=== PATIENT | female | born 1990 | race Caucasian/White ===

== ENCOUNTER 2022-07-18 21:21 | Outpatient (CLI) | payer BC, OTHER | END 2022-07-18 23:59 | disposition critical access hospital (66) | LOC: EMS 21:21 | DX: M54.50 Low back pain, unspecified (principal); Y04.8XXA Assault by other bodily force, initial encounter; Y92.008 Other place in unspecified non-institutional (private) residence as the place of occurrence of the external cause | CPT/HCPCS: A0425; A0429 ==

== ENCOUNTER 2022-07-18 21:39 | Emergency (ER) | payer BC ==
[2022-07-18] MEDS ORDERED: MELOXICAM 7.5 MG TABLET PO STA (22:20)
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
[2022-07-18 23:25] VITALS: BP 136/84
--- NOTE | 2022-07-18 23:44 | XRAY Report ---
PROCEDURE: Lumbar Spine 2 View INDICATIONS: fall, back pain TECHNIQUE: 2 views of the lumbar spine were acquired. COMPARISON: None. FINDINGS: Bones: 5 [id number] vertebrae are present. No evidence of fracture or subluxation. No vertebral body compression fractures. No suspicious bony lesions. Soft tissues: Overlying bowel gas pattern is normal. No suspicious soft tissue calcifications. IMPRESSION: 1. No evidence of fracture or subluxation. Reviewed by: Varun Durand MD on 07/18/2022 11:42 PM PDT Approved by: Varun Durand MD on 07/18/2022 11:42 PM PDT Station ID: [id number]
== END 2022-07-18 23:32 | disposition home or self-care (01) ==
LOC: ED 21:39
DX: M54.50 Low back pain, unspecified (principal)
CPT/HCPCS: 72100; 99283; 99284; A9270

== ENCOUNTER 2022-10-07 06:39 | Emergency (ER) | payer BC ==
[2022-10-07] MEDS ORDERED: ONDANSETRON 4 MG/2 ML VIAL IVP STA (07:36)
[2022-10-07] MEDS ORDERED: SODIUM CHLORIDE 0.9% 2,000 ML IV STA (07:36)
[2022-10-07] MEDS ORDERED: PANTOPRAZOLE 40 MG VIAL IVP STA (07:36)
--- NOTE | 2022-10-07 07:48 | ED Physician Documentation ---
PD HPI ABD PAIN - Stated complaint Stated Complaint: V/ABD PX - Chief complaint Chief Complaint: Abd Pain - History obtained from History obtained from: Patient - History of Present Illness Timing - onset: Today Pain level max: 6 Pain level now: 5 Quality: Aching, Pain Location: Epigastric Associated symptoms: Nausea, Vomiting. No: Fever, Hematemesis, Diarrhea, Constipation, Melena, Hematochezia, Dysuria - Additional information Additional information: Patient is a 32-year-old female who presents to the emergency department stating that she was drinking alcohol yesterday states she states that she had been sober for quite a while and drank an excessive amount. She has had vomiting this morning. No fevers. No chills. Denies any possibility of . Has epigastric abdominal pain. No blood in the emesis. No blood in the stool. She has not been taking her home medications recently. Review of Systems Constitutional: denies: Fever, Chills Nose: denies: Rhinorrhea / runny nose, Congestion Respiratory: denies: Cough GI: reports: Nausea, Vomiting. denies: Diarrhea : denies: Now EGA Skin: denies: Rash Musculoskeletal: denies: Neck pain, Back pain Neurologic: denies: Headache PD PAST MEDICAL HISTORY - Past Medical History Past Medical History: Yes GI: Pancreatitis Psych: Bipolar disorder - Present Medications Home Medications: Ambulatory Orders Medication Instructions Recorded Confirmed Acamprosate Calcium 666 mg PO DAILY 07/18/22 07/18/22 EPINEPHrine [Epinephrine] 0.3 mg IJ PRN PRN 07/18/22 07/18/22 [place] Carbonate 600 mg PO HS 07/18/22 07/18/22 Ondansetron HCl 4 mg PO Q4H PRN 07/18/22 07/18/22 hydrOXYzine HCL [Hydroxyzine HCl] 25 mg PO DAILY 07/18/22 07/18/22 lamoTRIgine [LaMICtal] 50 mg PO DAILY 07/18/22 07/18/22 methocarbamoL [Methocarbamol] 75 mg PO DAILY 07/18/22 07/18/22 Ondansetron Odt [Zofran] 4 mg TL Q6H PRN #10 tablet 10/07/22 - Allergies Allergies/Adverse Reactions: Allergies Allergy/AdvReac Type Severity Reaction Status Date / Time quetiapine [From Seroquel] AdvReac Unknown Verified 10/07/22 06:56 - Living Situation Living Situation: reports: With family Living Arrangement: reports: At home - Social History Does the pt drink ETOH?: Yes Does the pt have substance abuse?: No - Family History Family history: reports: Non contributory PD ED PE NORMAL - Vitals Vital signs reviewed: Yes - General General: Alert and oriented X 3, No acute distress - HEENT HEENT: PERRL, Moist mucous membranes - Neck Neck: Supple, no meningeal sign - Cardiac Cardiac: RRR, Strong equal pulses - Respiratory Respiratory: No respiratory distress, Clear bilaterally - Abdomen Abdomen: Soft, Non distended, Other (Tender to palpation epigastric without peritoneal signs) - Back Back: No CVA TTP, No spinal TTP - Derm Derm: Warm and dry - Extremities Extremities: No edema, No calf tenderness / cord - Neuro Neuro: Alert and oriented X 3 - Psych Psych: Normal mood, Normal affect Results - Vitals Vitals: Vital Signs - 24 hr 10/07/22 10/07/22 10/07/22 06:48 08:02 09:12 Temperature 37.3 C Heart Rate 105 H 74 99 Respiratory 19 18 18 Rate Blood Pressure 121/81 H 113/75 106/68 O2 Saturation 98 99 100 Oxygen O2 Source Room air - Labs Labs: Laboratory Tests 10/07/22 10/07/22 10/07/22 07:38 08:03 08:03 WBC 5.4 RBC 4.89 Hgb 15.2 Hct 43.7 MCV 89.4 MCH 31.1 H MCHC 34.8 RDW 12.1 Plt Count 396 MPV 8.9 Neut # (Auto) 3.9 Lymph # (Auto) 1.2 L [place] # (Auto) 0.2 Eos # (Auto) 0.2 Baso # (Auto) 0.0 Absolute Nucleated RBC 0.00 Nucleated RBC % 0.0 Sodium 140 Potassium 3.9 Chloride 105 Carbon Dioxide 24 Anion Gap 11.0 BUN 13 Creatinine 0.8 Estimated GFR (MDRD) 84 L Glucose 133 H Calcium 8.6 Total Bilirubin 0.4 AST 18 ALT 21 Alkaline Phosphatase 49 Total Protein 8.6 H Albumin 4.9 Globulin 3.7 Albumin/Globulin Ratio 1.3 Lipase 31 Urine Color YELLOW Urine Clarity HAZY Urine pH 8.0 H Ur Specific [place] 1.015 Urine Protein TRACE Urine Glucose (UA) NEGATIVE Urine Ketones NEGATIVE Urine Occult Blood SMALL H Urine Nitrite NEGATIVE Urine Bilirubin NEGATIVE Urine Urobilinogen 0.2 (NORMAL) Ur Leukocyte Esterase NEGATIVE Urine RBC 0-5 Urine WBC 0-3 Ur Squamous Epith Cells MOD Squamous H Urine Bacteria Moderate H Ur Microscopic Review INDICATED Urine Culture Comments NOT INDICATED Urine HCG, Qual NEGATIVE PD Medical Decision Making - ED course Complexity details: reviewed results, re-evaluated patient, considered differential, d/w patient ED course: 32-year-old female with nausea and vomiting after drinking alcohol yesterday. No significant findings on CBC, ER abdominal panel or urinalysis. Given IV fluids, IV Protonix and IV Zofran. Patient feels much better. Eating and drinking without difficulty. We will have her follow-up with her doctor for further care. Patient does not want to speak to social work about detox or rehab. Patient counseled regarding signs and symptoms for which I believe and urgent re-evaluation would be necessary. Patient with good understanding of and agreement to plan and is comfortable going home at this time This document was made in part using voice recognition software. While efforts are made to proofread this document, sound alike and grammatical errors may occur. Departure - Departure Disposition: 01 Home, Self Care Clinical Impression: Vomiting Qualifiers: Vomiting type: unspecified Nausea presence: with nausea Qualified Code(s): R11.2 - Nausea with vomiting, unspecified Condition: Good Instructions: ED Nausea Vomiting Follow-Up: your,doctor in 1 week [Other] Prescriptions: Ondansetron Odt [Zofran] 4 mg TL Q6H PRN #10 tablet PRN Reason: Nausea / Vomiting Comments: Your prescription was [facility] in [place]. Please follow-up with your doctor for further care. Please return if you worsen. Discharge Date/Time: 10/07/22 09:13
[2022-10-07 07:59] LABS: BILIRUBIN,URINE NEGATIVE (NEGATIVE); GLUCOSE, URINE (UA) NEGATIVE (NEGATIVE); KETONES,URINE (UA) NEGATIVE (NEGATIVE); LEUKOCYTE ESTERASE, URINE NEGATIVE (NEGATIVE); NITRITE,URINE NEGATIVE (NEGATIVE); OCCULT BLOOD,URINE SMALL (NEGATIVE); PROTEIN,URINE TRACE mg/dL (NEGATIVE); UROBILINOGEN,URINE 0.2 (NORMAL) E.U./dL (NORMAL)
[2022-10-07 08:00] LABS: CLARITY,URINE HAZY (CLEAR)
[2022-10-07 08:06] LABS: BACTERIA,URINE Moderate /HPF (None Seen); HCG UR QUAL NEGATIVE; RBC,URINE 0-5 /HPF (0-5); SQUAMOUS EPITHELIAL CELL,UR MOD Squamous (<= Few); WBC,URINE 0-3 /HPF (0-5)
[2022-10-07 08:09] LABS: BASOPHILS % (AUTO) 0.4 %; EOSINOPHILS # (AUTO) 0.2 10^3/uL (0.0-0.7); EOSINOPHILS % (AUTO) 2.9 %; HCT - HEMATOCRIT 43.7 % (37.0-47.0); HGB - HEMOGLOBIN 15.2 g/dL (12.0-16.0); LYMPHOCYTES # (AUTO) 1.2 10^3/uL (1.5-3.5); LYMPHOCYTES % (AUTO) 22.5 %; MEAN CORPUSCULAR HEMOGLOBIN 31.1 pg (27.0-31.0); MEAN CORPUSCULAR HGB CONC 34.8 g/dL (32.0-36.0); MEAN CORPUSCULAR VOLUME 89.4 fL (81.0-99.0); MEAN PLATELET VOLUME 8.9 fL (7.9-10.8); MONOCYTES # (AUTO) 0.2 10^3/uL (0.0-1.0); MONOCYTES % (AUTO) 2.8 %; NEUTROPHILS # (AUTO) 3.9 10^3/uL (1.5-6.6); PLT - PLATELET COUNT 396 10^3/uL (130-450); RED BLOOD COUNT 4.89 10^6/uL (4.20-5.40); RED CELL DISTRIBUTION WIDTH 12.1 % (12.0-15.0); WHITE BLOOD COUNT 5.4 x10^3/uL (4.8-10.8)
[2022-10-07 08:21] LABS: ALBUMIN 4.9 g/dL (3.2-5.5); ALBUMIN/GLOBULIN RATIO 1.3 (1.0-2.2); BILIRUBIN,TOTAL 0.4 mg/dL (0.2-1.0); CALCIUM 8.6 mg/dL (8.5-10.3); CREATININE 0.8 mg/dL (0.4-1.0); POTASSIUM 3.9 mmol/L (3.5-5.0); TOTAL PROTEIN 8.6 g/dL (6.7-8.2)
[2022-10-07 09:18] VITALS: BP 106/68
== END 2022-10-07 09:13 | disposition home or self-care (01) ==
LOC: ED 06:39
DX: R11.2 Nausea with vomiting, unspecified (principal)
CPT/HCPCS: 36415; 80053; 81001; 81003; 81025; 83690; 85025; 87086; 96374; 96375; 99284